=== PATIENT | male | born 1965 | race Hispanic/Latino ===

== ENCOUNTER 2017-10-29 20:36 | Emergency (ER) | payer OTHER ==
[2017-10-29] MEDS ORDERED: Ibuprofen 800 MG TAB ONE (21:07)
--- NOTE | 2017-10-29 21:34 | RAD ---
LEFT FIFTH FINGER THREE VIEWS: 10/29/17 HISTORY: 52-year-old male with history of trauma, injury to left fifth finger with bruising and swelling. Wire suture stabilizes the proximal phalanx of the fourth finger. No acute fracture or dislocation of the fifth finger. IMPRESSION: No acute fracture or dislocation. POS: [facility]
[2017-10-29] MEDS ORDERED: Adacel (T-DAP) 0.5 ML VIAL ONE (21:40)
== END 2017-10-29 22:11 | disposition home or self-care (01) ==
LOC: NAV ERS 20:36
DX: S60.052A Contusion of left little finger without damage to nail, initial encounter (principal); Z87.891 Personal history of nicotine dependence; W31.9XXA Contact with unspecified machinery, initial encounter; Y99.0 Civilian activity done for income or pay
CPT/HCPCS: 90471; 90715; 99001